=== PATIENT | female | born 1965 | race Two or more races ===

== ENCOUNTER 2023-11-27 17:07 | Emergency (ER) | payer MEDICAID ==
[~2023-11-27] VITALS: Ht 152.4 cm; Wt 78.0 kg
[2023-11-27] MEDS ORDERED: ASPI81TA31 PO (17:22)
[2023-11-27] MEDS ORDERED: INSULIN (17:22)
[2023-11-27] MEDS ORDERED: GLIP5TAB13 PO (17:22)
[2023-11-27] MEDS ORDERED: METF-442 PO (17:22)
[2023-11-27] MEDS ORDERED: ATOR20TA PO (17:22)
[2023-11-27] MEDS: IV NORMAL SALINE 1000 ML BAG IV ONE (18:31)
[2023-11-27] MEDS ORDERED: AZIT500T PO (18:32)
[2023-11-27] MEDS ORDERED: METOCLOPRAMIDE HCL 10 MG/2 ML VIAL ONE (18:32)
[2023-11-27] MEDS ORDERED: KETOROLAC TROMETHAMINE 15 MG INJ ONE (18:32)
[2023-11-27] MEDS ORDERED: METO-295 PO (18:32)
[2023-11-27] MEDS: METOCLOPRAMIDE HCL 10 MG/2 ML VIAL IV ONE (18:33)
[2023-11-27] MEDS: KETOROLAC TROMETHAMINE 15 MG INJ IVP ONE (18:34)
[2023-11-27 18:38] LABS: BASOPHILS % (AUTO) 0.4 % (0.0-2.0); EOSINOPHILS # (AUTO) 0.1 K/uL (0.0-0.7); EOSINOPHILS % (AUTO) 1.5 % (0.0-7.0); HEMATOCRIT 38.1 % (31.2-41.9); HEMOGLOBIN 12.3 g/dL (10.9-14.3); LYMPHOCYTES # (AUTO) 2.5 K/uL (0.8-4.8); LYMPHOCYTES % (AUTO) 39.4 % (20.5-51.5); MEAN CORPUSCULAR HGB CONC 32 g/dL (32.3-35.6); MEAN CORPUSCULAR VOLUME 77.4 fL (75.5-95.3); MONOCYTES # (AUTO) 0.6 K/uL (0.1-1.30); MONOCYTES % (AUTO) 9.1 % (0.0-11.0); NEUTROPHILS # (AUTO) 3.2 K/uL (1.8-8.9); NEUTROPHILS % (AUTO) 49.6 % (38.5-71.5); PLATELET COUNT (AUTO) 252 K/uL (179-408); RED BLOOD CELL COUNT(AUTO) 4.92 MIL/uL (3.63-4.92); RED CELL DISTRIBUTION WIDTH 16.1 % (12.3-17.7); WHITE BLOOD COUNT (AUTO) 6.4 K/uL (3.8-11.8)
[2023-11-27 18:40] LABS: DIFFERENTIAL COMMENT 1
[2023-11-27 18:48] LABS: CALCIUM 9.1 mg/dL (8.5-10.1); CARBON DIOXIDE 31 mmol/L (21-32); CHLORIDE 100 mmol/L (98-107); CREATININE 0.9 mg/dL (0.6-1.3); GLUCOSE 216 mg/dL (74-106); POTASSIUM 3.7 mmol/L (3.5-5.1); SODIUM SERUM 139 mmol/L (136-145); UREA NITROGEN, BLOOD 19 mg/dL (7-18)
[2023-11-27 18:56] LABS: ALANINE AMINOTRANSFERASE 44 U/L (14-59); ALBUMIN 3.2 g/dL (3.4-5.0); ALKALINE PHOSPHATASE 135 U/L (50-136); ASPARTATE AMINOTRANSFERASE 24 U/L (15-37); BILIRUBIN,DIRECT 0.1 mg/dL (0.0-0.2); BILIRUBIN,TOTAL 0.3 mg/dL (0.2-1.0); LIPASE 72 U/L (16-77); TOTAL PROTEIN, SERUM 7.2 g/dL (6.4-8.2)
[2023-11-27 19:04] LABS: LACTIC ACID 3.1 mmol/L (0.4-2.0)
[2023-11-27 19:21] LABS: *BILIRUBIN,URIN NEGATIVE (NEGATIVE); *BLOOD, URINE NEGATIVE (NEGATIVE); *CLARITY,URINE CLEAR (CLEAR); *COLOR,URINE YELLOW (YELLOW); *KETONES,URINE TRACE (NEGATIVE); LEUKOCYTE ESTERASE ,URINE TRACE (NEGATIVE); NITRITE, URINE NEGATIVE (NEGATIVE); UGLUCOSE TRACE (NEGATIVE)
[2023-11-27 19:22] LABS: *PROTEIN,URINE 3+ (NEGATIVE)
[2023-11-27 19:37] LABS: BACTERIA,URINE MODERATE /HPF (NONE SEEN); SQUAMOUS EPITHELIAL CELL,UR MODERATE /HPF (NONE SEEN)
[2023-11-27] MEDS: FLUCONAZOLE 100 MG TABLET PO ONE (22:12)
[2023-11-27] MEDS ORDERED: NITR-104 PO (22:12)
[2023-11-27] MEDS ORDERED: FLUCONAZOLE 100 MG TABLET ONE (22:14)
[2023-11-27 22:33] VITALS: BP 118/70; TEMP 98; O2SAT 97
== END 2023-11-27 22:34 | disposition home or self-care (01) ==
LOC: ER 17:17
DX: E86.0 Dehydration (principal); R19.7 Diarrhea, unspecified; E11.9 Type 2 diabetes mellitus without complications; Z79.899 Other long term (current) drug therapy; Z79.84 Long term (current) use of oral hypoglycemic drugs; Z60.2 Problems related to living alone
CPT/HCPCS: 99285; 74176; 96374; 71045; 96361; 96375; 80076; 80048; 81001; 82009; 83690; 85025; 85730; 84484; 36415; 93005; 83605 ×2; 87086; J1885; J2765; J7040; A4606; A4663

== ENCOUNTER 2024-07-08 14:25 | Emergency (ER) | payer OTHER ==
[~2024-07-08] VITALS: Ht 160 cm; Wt 95.3 kg
[~2024-07-08 14:25] MED LIST: ASPI81TA31 PO; ATOR20TA PO; AZIT500T PO; GLIP5TAB13 PO; INSULIN; METF-442 PO; METO-295 PO; NITR-104 PO
[2024-07-08] MEDS ORDERED: METOCLOPRAMIDE HCL 10 MG/2 ML VIAL ONE (15:20)
[2024-07-08] MEDS ORDERED: KETOROLAC TROMETHAMINE 15 MG INJ ONE (15:20)
[2024-07-08] MEDS: METOCLOPRAMIDE HCL 10 MG/2 ML VIAL IV ONE (15:34)
[2024-07-08] MEDS: KETOROLAC TROMETHAMINE 15 MG INJ IVP ONE (15:34)
[2024-07-08] MEDS: IV NORMAL SALINE 1000 ML BAG IV ONE (15:39)
[2024-07-08 15:58] LABS: BASOPHILS % (AUTO) 0.4 % (0.0-2.0); EOSINOPHILS # (AUTO) 0.1 K/uL (0.0-0.7); EOSINOPHILS % (AUTO) 0.9 % (0.0-7.0); HEMATOCRIT 40.8 % (31.2-41.9); HEMOGLOBIN 13.5 g/dL (10.9-14.3); LYMPHOCYTES # (AUTO) 0.9 K/uL (0.8-4.8); LYMPHOCYTES % (AUTO) 11.3 % (20.5-51.5); MEAN CORPUSCULAR HEMOGLOBIN 26.4 uug (24.7-32.8); MEAN CORPUSCULAR HGB CONC 33 g/dL (32.3-35.6); MEAN CORPUSCULAR VOLUME 79.9 fL (75.5-95.3); MONOCYTES # (AUTO) 0.2 K/uL (0.1-1.30); MONOCYTES % (AUTO) 3.1 % (0.0-11.0); NEUTROPHILS # (AUTO) 6.4 K/uL (1.8-8.9); NEUTROPHILS % (AUTO) 84.3 % (38.5-71.5); PLATELET COUNT (AUTO) 260 K/uL (179-408); RED BLOOD CELL COUNT(AUTO) 5.11 MIL/uL (3.63-4.92); RED CELL DISTRIBUTION WIDTH 14.8 % (12.3-17.7); WHITE BLOOD COUNT (AUTO) 7.6 K/uL (3.8-11.8)
[2024-07-08 16:01] LABS: DIFFERENTIAL COMMENT 1
[2024-07-08 16:08] LABS: CALCIUM 9.1 mg/dL (8.5-10.1); CARBON DIOXIDE 27 mmol/L (21-32); CHLORIDE 101 mmol/L (98-107); CREATININE 0.9 mg/dL (0.6-1.3); GLUCOSE 177 mg/dL (74-106); POTASSIUM 3.9 mmol/L (3.5-5.1); SODIUM SERUM 139 mmol/L (136-145); UREA NITROGEN, BLOOD 19 mg/dL (7-18)
[2024-07-08 16:14] LABS: ALANINE AMINOTRANSFERASE 37 U/L (14-59); ALBUMIN 3.4 g/dL (3.4-5.0); ALKALINE PHOSPHATASE 129 U/L (50-136); ASPARTATE AMINOTRANSFERASE 29 U/L (15-37); BILIRUBIN,DIRECT 0.2 mg/dL (0.0-0.2); BILIRUBIN,TOTAL 0.5 mg/dL (0.2-1.0); LIPASE 49 U/L (16-77); TOTAL PROTEIN, SERUM 7.5 g/dL (6.4-8.2)
[2024-07-08] MEDS ORDERED: AMOX-430 PO (16:49)
[2024-07-08] MEDS ORDERED: HYDR-3972 PO (16:49)
[2024-07-08 17:01] VITALS: BP 110/72; O2SAT 95
[2024-07-08 20:53] LABS: *BILIRUBIN,URIN NEGATIVE (NEGATIVE); *BLOOD, URINE NEGATIVE (NEGATIVE); *CLARITY,URINE CLEAR (CLEAR); *COLOR,URINE YELLOW (YELLOW); *KETONES,URINE NEGATIVE (NEGATIVE); *PROTEIN,URINE 1+ (NEGATIVE); *UROBILINOGEN,URINE 0.2 E.U./dl (NORMAL); LEUKOCYTE ESTERASE ,URINE NEGATIVE (NEGATIVE); NITRITE, URINE NEGATIVE (NEGATIVE); PH,URINE 6.5 (5.0-8.0); UGLUCOSE 2+ (NEGATIVE)
[2024-07-08 21:26] LABS: BACTERIA,URINE NONE SEEN /HPF (NONE SEEN); RBC,URINE NONE SEEN /HPF (0-3); SQUAMOUS EPITHELIAL CELL,UR FEW /HPF (NONE SEEN); WBC,URINE 0-3 /HPF (0-3)
== END 2024-07-08 17:04 | disposition home or self-care (01) ==
LOC: ER 14:25
DX: K57.32 Diverticulitis of large intestine without perforation or abscess without bleeding (principal); E11.9 Type 2 diabetes mellitus without complications; E78.5 Hyperlipidemia, unspecified; R07.9 Chest pain, unspecified; Z79.4 Long term (current) use of insulin; Z79.84 Long term (current) use of oral hypoglycemic drugs; Z79.899 Other long term (current) drug therapy; Z20.822 Contact with and (suspected) exposure to COVID-19
CPT/HCPCS: 99285; 74176; 96374; 71045; 96361; 96375; 87426; 87804 ×2; 80076; 80048; 81001; 83690; 85025; 85730; 84484; 36415; 93005; J1885; J2765; J7040; A4606; A4663